=== PATIENT | female | born 2000 | race Caucasian/White ===

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

== ENCOUNTER → 2022-02-23 | Outpatient (CLI) | payer BC, MEDICAID ==
[~2022-02-23] MED LIST changes: +ACET325T49 PO; +ACHD5005 PO; +CETI10TA17 PO; +DOCU-26 PO; +DOXY-311 PO; +IBUP-2473 PO; +METR500T PO
== END ==
LOC: LABNPT 16:33
PROVIDERS: ATTEND Obstetrics & Gynecology
DX: Z34.02 Encounter for supervision of normal first pregnancy, second trimester (principal); Z3A.00 Weeks of gestation of pregnancy not specified
CPT/HCPCS: 82105

== ENCOUNTER 2022-03-17 13:26 | Outpatient (CLI) | payer BC, MEDICAID ==
[~2022-03-17] VITALS: Ht 160 cm; Wt 87.1 kg
[2022-03-17 13:52] VITALS: BP 126/77
[2022-03-17 13:59] VITALS: BP 126/77
[2022-03-17] MEDS ORDERED: ONDA8TAB13 PO (14:21)
[2022-03-17] MEDS ORDERED: PREN-37 PO (14:21)
[2022-03-17 14:30] VITALS: BP 126/77
--- NOTE | 2022-03-18 08:36 | Physician Query-Final Dx ---
RADHA,03/18/22 0836: Clinic Account Progress/Dx Physician Query: Please give diagnosis Please include # weeks gestation Date of Service March 17, 2022 at 13:26 MARY ROJAS MD 03/18/22 1024: Clinic Account Progress/Dx DIAGNOSIS: Diagnosis 21 weeks gestation with decreased movement RADHA,OctMarch 18, 2022 08:36 MARY ROJAS MD March 18, 2022 10:24
== END 2022-03-17 14:30 | disposition home or self-care (01) ==
LOC: WSo 13:26 → LDRP 13:29 → WSo 14:30
PROVIDERS: ATTEND Obstetrics & Gynecology
DX: O36.8120 Decreased fetal movements, second trimester, not applicable or unspecified (principal); Z3A.21 21 weeks gestation of pregnancy
CPT/HCPCS: 99214

== ENCOUNTER 2022-07-27 06:56 | Inpatient (IN) | payer BC, MEDICAID ==
[~2022-07-27] VITALS: Ht 157.5 cm; Wt 103.5 kg
[2022-07-27] VITALS (56 sets, daily range): BP systolic 98–153; BP diastolic 48–112
[~2022-07-27 06:56] MED LIST changes: +ONDA8TAB13 PO; +PREN-37 PO
[2022-07-27] MEDS ORDERED: OXYTOCIN PRE-MIX DRIP 500 ML IV SCH (08:00)
--- NOTE | 2022-07-27 08:03 | History & Physical ---
History and Physical Date Seen by Provider: Jul 27, 2022 Time Seen by Provider: 08:01 This patient is a 21-year-old 1 female who is admitted on her due date for labor induction. She denies rupture membranes or bleeding. She has no bowel or bladder complaints. She has had no problems with this . Her GBS culture was negative. Allergies are none Medications are vitamins Medical social and surgical histories are per the antepartum record HEENT exam is normal Neck is supple no lymphadenopathy no thyromegaly Abdomen is gravid soft nontender nondistended Extremities show no clubbing or cyanosis. No Homans' sign. Pelvic exam cervix is 2 cm dilated 60% effaced -1 station vertex presentation with intact membranes. Amniotomy was performed with release of clear fluid monitor shows category 1 heart rate tracing Assessment and plan 40-week admitted for induction of labor. We anticipate a vaginal delivery but would be prepared for for maternal or indications 40 weeks admitted for induction of labor Allergies and Home Medications Allergies Coded Allergies: No Known Drug Allergies (Unverified , 11/17/11) Patient Home Medication List Home Medication List Reviewed: Yes Ondansetron (Ondansetron Odt) 8 Mg Tab.rapdis, 8 MG PO Q6H, (Reported) Entered as Reported by: VICENTE PEREZ on 03/17/22 142 Vit/Iron Fumarate/FA ( Tablet) 27 Mg Iron-800 Mcg Tablet, 1 EACH PO DAILY, (Reported) Entered as Reported by: VICENTE PEREZ on 03/17/22 142 MARY ROJAS MD Jul 27, 2022 08:03
[2022-07-27] MEDS ORDERED: fentaNYL 2 mcg/ml BUPIVA 0.125 100 ML ONE (08:08)
[2022-07-27 08:11] LABS: BASOPHILS % (AUTO) 0 % (0-10); EOSINOPHILS # (AUTO) 0.1 10^3/uL (0.0-0.3); EOSINOPHILS % (AUTO) 1 % (0-10); HEMATOCRIT 38 % (35-52); HEMOGLOBIN 12.7 g/dL (11.5-16.0); LYMPHOCYTES % (AUTO) 28 % (12-44); MEAN CORPUSCULAR HEMOGLOBIN 28 pg (25-34); MEAN CORPUSCULAR HGB CONC 34 g/dL (32-36); MEAN CORPUSCULAR VOLUME 82 fL (80-99); MEAN PLATELET VOLUME 12.5 fL (9.0-12.2); MONOCYTES # (AUTO) 0.7 10^3/uL (0.0-1.0); MONOCYTES % (AUTO) 6 % (0-12); NEUTROPHILS # (AUTO) 6.9 10^3/uL (1.8-7.8); NEUTROPHILS % (AUTO) 64 % (42-75); PLATELET COUNT 190 10^3/uL (130-400); WHITE BLOOD COUNT 10.7 10^3/uL (4.3-11.0)
[2022-07-27] MEDS: D5 LR IV SOLUTION 1,000 ML IV SCH ×2 (08:19→14:40)
[2022-07-27] MEDS ORDERED: fentaNYL INJ 100 MCG/2 ML AMP ONE ×2 (10:27→17:16)
[2022-07-27] MEDS ORDERED: BUPIVACAINE 0.25% 30 ML (SENSORCAINE) VIAL ONE (10:27)
[2022-07-27] MEDS: fentaNYL 2 mcg/ml BUPIVA 0.125 100 ML EPI SCH ×2 (10:55→19:20)
[2022-07-27] MEDS ORDERED: NALOXONE 0.4 MG/ML 1 ML (NARCAN) VIAL IV PRN ×2 (11:00→18:30)
[2022-07-27] MEDS ORDERED: ONDANSETRON 4 MG/2 ML (SDV) Z0FRAN IV PRN (11:00)
[2022-07-27] MEDS ORDERED: LACTATED RINGERS 1,000 ML IV ONE ×2 (11:00)
[2022-07-27] MEDS ORDERED: fentaNYL INJ 100 MCG/2 ML AMP INJ ONE (11:00)
[2022-07-27] MEDS ORDERED: LACTATED RINGERS 1,000 ML IV PRN ×2 (17:15)
[2022-07-27] MEDS ORDERED: CITRIC ACID/SOB CIT (BICITRA) 30 ML UDC PO ONE (17:15)
[2022-07-27] MEDS ORDERED: METOCLOPRAMIDE INJ 10 MG/2 ML (REGLAN) IV ONE (17:15)
[2022-07-27] MEDS ORDERED: CATHETER FLUSH 10 ML SYR IV PRN (17:15)
[2022-07-27] MEDS ORDERED: BUPIVACAINE 0.5% 30 ML (SENSORCAINE) VIAL ONE (17:16)
[2022-07-27] MEDS ORDERED: ceFAZolin INJECTION 0 MG ONE (17:24)
[2022-07-27] MEDS ORDERED: metroNIDAZOLE 500MG/100ML IVPB 100 ML ONE (17:24)
[2022-07-27] MEDS ORDERED: NS (IVPB) 50 ML ONE (17:26)
[2022-07-27] MEDS ORDERED: ceFAZolin INJECTION 2,000 MG ONE (17:26)
[2022-07-27] MEDS ORDERED: ceFAZolin INJECTION 2,000 MG in NS (IVPB) 50 ML IV ONE (18:15)
[2022-07-27] MEDS ORDERED: metroNIDAZOLE 500MG/100ML IVPB 100 ML IV ONE (18:15)
[2022-07-27] MEDS ORDERED: TETANUS,DIPTH,PERTUSS P/F (BOOSTRIX) 0.5 ML VIAL IM ONE (18:30)
[2022-07-27] MEDS ORDERED: PROMETHAZINE INJ 25 MG/ML (PHENERGAN) AMP IM PRN (18:30)
[2022-07-27] MEDS ORDERED: MEPERIDINE (DEMEROL) INJ 50 MG/ML IM PRN (18:30)
[2022-07-27] MEDS ORDERED: D5 LR IV SOLUTION 1,000 ML IV SCH (18:30)
[2022-07-27] MEDS: OXYTOCIN PRE-MIX DRIP 500 ML IV SCH ×2 (19:30→23:11)
[2022-07-27] MEDS: DOCUSATE SODIUM 100 MG (COLACE) CAP PO SCH (19:45)
[2022-07-27] MEDS: KETOROLAC 30 MG/ML VIAL IV SCH (19:46)
[2022-07-28 00:52] VITALS: BP 108/59
[2022-07-28] MEDS: KETOROLAC 30 MG/ML VIAL IV SCH ×2 (00:52→06:14)
[2022-07-28] MEDS: oxyCODONE/APAP 10/325MG (PERCOCET 10) TABLET PO PRN ×2 (02:10→11:18)
[2022-07-28] MEDS: D5 LR IV SOLUTION 1,000 ML IV SCH (03:02)
--- NOTE | 2022-07-28 03:11 | OPERATIVE REPORT ---
DATE OF SERVICE: 07/27/2022 PREOPERATIVE DIAGNOSES: Term at 40 weeks in labor with failure to progress/uterine inertia. POSTOPERATIVE DIAGNOSES: Term at 40 weeks in labor with failure to progress/uterine inertia. OPERATIVE PROCEDURE: Primary low transverse delivery of a viable male infant with Apgars of 9 and 9 at 1 and 5 minutes respectively, weight of 7 pounds 11 ounces, time of 17:52 and a cord blood pH of 7.3. OPERATIVE DESCRIPTION: With the patient in the supine position under satisfactory epidural analgesia, the patient was prepped and draped in the usual fashion for abdominal surgery. Pepe catheter had been placed in the urinary bladder during labor that was left to dependent drainage. A Pfannenstiel incision was made through skin with a scalpel, the patient's abdomen entered in the usual manner. Bladder retractor placed into position and clean scalpel was used to make a 4 cm hysterotomy incision transversely across the lower uterine segment that was extended bluntly. A vigorous viable male infant was delivered via the uterine incision. The was bulb suctioned on delivery of the head and again on completion of delivery. Umbilical cord was doubly clamped and cut and the infant passed to the pediatric attendant. Cord bloods were obtained. The placenta delivered spontaneously Riley. It was normal with a 3-vessel cord. The uterus was exteriorized and interior wiped clean with a wet laparotomy sponge. Uterine incision closed with a running locked suture of 2-0 Vicryl. Hemostasis was complete. The uterus was returned to the abdominal cavity. All blood clot and debris was removed from the abdominal cavity. With sponge and needle counts correct, hemostasis assured. The anterior parietal peritoneum was closed with running suture of 2-0 Vicryl. Rectus muscles were closed with that same suture, rectus fascia was closed with 2-0 Vicryl, subcutaneous tissue was closed with 2-0 Vicryl and the skin was stapled. Sponge and needle counts were correct on completion of the procedure. Blood loss was around 500 mL. The patient tolerated the procedure well and was transferred to the recovery room in stable condition. The was taken stable to the full-term nursery. Job ID: [id number] DocumentID: [id number] Dictated Date: 07/27/2022 21:23:35 Bias Machine Operator Helper Date: 07/28/2022 03:10:45 Dictated By: MARY ROJAS MD
[2022-07-28 04:40] VITALS: BP 108/55
--- NOTE | 2022-07-28 07:45 | Anesthesia-Regional Post-Op ---
Regional Patient Condition Mental Status: Alert, Oriented x3 Circulation: Same as Pre-Op Headache: Absent Sensation: Full Recovery Motor Block: Absent Post Op Complications Complications None Follow Up Care/Instructions Patient Instructions None needed. Anesthesia/Patient Condition Patient is doing well, no complaints, stable vital signs, no apparent adverse anesthesia problems. No complications reported per nursing. MICHELL BAILEY CRNA Jul 28, 2022 07:45
--- NOTE | 2022-07-28 08:10 | Progress Note ---
Standard Progress Note Progress Notes/Assess & Plan Date Seen by a Provider: Jul 28, 2022 Time Seen by a Provider: 08:09 Progress/Assessment & Plan This patient is without complaint. She is ambulating, voiding, tolerating oral intake well and has good pain control. Vital Signs 07/27/22 07/28/22 11:38 04:40 Temp 36.0 Pulse 74 Resp 16 B/P (MAP) 108/55 (72) Pulse Ox 98 O2 Delivery Room Air O2 Flow Rate 15.00 Vital signs are stable. Patient is afebrile. The abdomen is benign. The surgical incision is clean dry and intact. Extremities show no clubbing or cyanosis. There is no Homans' sign. Pelvic exam is deferred Assessment and plan Postoperative day #1 status post primary delivery at 40 weeks gestation. Patient is doing well will have routine convalescent care MARY ROJAS MD Jul 28, 2022 08:10
[2022-07-28 08:40] VITALS: BP 126/59
[2022-07-28] MEDS: DOCUSATE SODIUM 100 MG (COLACE) CAP PO SCH ×2 (08:40→21:00)
[2022-07-28] MEDS ORDERED: IBUP-1780 PO (09:59)
[2022-07-28] MEDS ORDERED: DOCU100C37 PO (09:59)
[2022-07-28] MEDS ORDERED: OXYC1TAB12 PO (09:59)
--- NOTE | 2022-07-28 10:01 | Discharge Inst-Surgical ---
Discharge Inst-Surgical Depart Medication/Instructions New, Converted or Re-Newed RX: Transmitted to Pharmacy Consults/Follow Up Patient Instructions: As directed Orders & Referrals Follow Up Appt: RTC 1 week for incision check. Call to make follow up appt. for patient in 4 weeks. Wound Care: Remove vita, apply benzoin and steri strips. Activity Per routine post instructions. Diet as tolerated Patient may shower or tub bathe as desired. Continue home meds Activity Activity as Tolerated: No Diet Discharge Diet: No Restrictions MARY ROJAS MD Jul 28, 2022 10:01
[2022-07-28 11:18] VITALS: BP 124/58
[2022-07-28] MEDS: IBUPROFEN 800 MG (MOTRIN) TAB PO SCH ×2 (12:39→18:02)
[2022-07-28 18:03] VITALS: BP 112/80
[2022-07-28] MEDS ORDERED: IBUPROFEN 800 MG (MOTRIN) TAB PO SCH (18:30)
[2022-07-29 00:46] VITALS: BP 118/58
[2022-07-29] MEDS: IBUPROFEN 800 MG (MOTRIN) TAB PO SCH ×3 (00:46→12:12)
[2022-07-29] MEDS: oxyCODONE/APAP 10/325MG (PERCOCET 10) TABLET PO PRN (00:46)
[2022-07-29 06:09] VITALS: BP 118/55
--- NOTE | 2022-07-29 07:45 | Progress Note ---
Standard Progress Note Progress Notes/Assess & Plan Date Seen by a Provider: Jul 29, 2022 Time Seen by a Provider: 07:43 Progress/Assessment & Plan This patient is without complaint. She is ambulating, voiding, tolerating oral intake well and has good pain control. Vital Signs 07/27/22 07/28/22 11:38 04:40 Temp 36.0 Pulse 74 Resp 16 B/P (MAP) 108/55 (72) Pulse Ox 98 O2 Delivery Room Air O2 Flow Rate 15.00 Vital signs are stable. Patient is afebrile. The abdomen is benign. The surgical incision is clean dry and intact. Extremities show no clubbing or cyanosis. There is no Homans' sign. Pelvic exam is deferred Assessment and plan Postoperative day #1 status post primary delivery at 40 weeks gestation. Patient is doing well will have routine convalescent care July 29, 2022 Patient is without complaint. She is ambulating, voiding, tolerating oral intake well has good pain control. Patient is requesting discharge home. Vital Signs Date Time Temp Pulse Resp B/P (MAP) Pulse Ox O2 Delivery O2 Flow Rate FiO2 07/29/22 06:09 36.0 67 18 118/55 (76) 98 Room Air 07/29/22 00:46 36.4 76 18 118/58 (78) 98 Room Air 07/28/22 18:03 36.6 85 18 112/80 (91) Room Air 07/28/22 11:18 36.7 71 18 124/58 (80) Room Air 07/28/22 09:10 98 Room Air 07/28/22 08:40 36.4 78 18 126/59 (81) Room Air Vital signs are stable. Patient is afebrile. The abdomen is benign. The fundus is firm below the umbilicus and minimally tender Extremities show no clubbing or cyanosis. There is no Homans' sign. Assessment and plan Postoperative day #2 status post primary delivery at 40 weeks ge station. Patient is doing well will be discharged home with follow-up in clinic Final Diagnosis 40-week primary delivery MARY ROJAS MD Jul 29, 2022 07:45
[2022-07-29 09:30] VITALS: BP 117/72
[2022-07-29] MEDS: DOCUSATE SODIUM 100 MG (COLACE) CAP PO SCH (09:40)
[2022-07-29 13:00] VITALS: BP 117/72
== END 2022-07-29 13:00 | disposition home or self-care (01) | DRG 788 ==
LOC: LDRP 06:56
PROVIDERS: ADMIT Obstetrics & Gynecology; ATTEND Obstetrics & Gynecology
PROC: 3E033VJ Introduction of Other Hormone into Peripheral Vein, Percutaneous Approach (ICD-10-PCS; 2022-07-27)
PROC: 10D00Z1 Extraction of Products of Conception, Low, Open Approach (ICD-10-PCS; principal; 2022-07-27 17:33)
DX: O48.0 Post-term pregnancy (principal); O62.2 Other uterine inertia; Z3A.40 40 weeks gestation of pregnancy; Z37.0 Single live birth
CPT/HCPCS: 36415; 85025; 86850; 86900; 86901